=== PATIENT | female | born 2000 | race Caucasian/White ===

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

== ENCOUNTER 2019-01-01 19:56 | Emergency (ER) | payer BC ==
[~2019-01-01] VITALS: Ht 167.6 cm; Wt 47.7 kg
[2019-01-01] MEDS ORDERED: LILETTA52 MG (20:13)
[2019-01-01] MEDS ORDERED: ENTYVIO IV (20:13)
[2019-01-01] MEDS ORDERED: CANASA 1000MG1000 MG (20:13)
[2019-01-01] MEDS ORDERED: PRIL40 PO (20:13)
[2019-01-01 21:10] LABS: COLLECTION METHOD CLEAN CATCH
[2019-01-01 21:14] LABS: BASO # 0.1 (0.0-0.2); BASO % 0.7 % (0.0-2.0); EOS # 0.1 (0.0-0.7); GRAN # 7.4 (1.4-6.5); GRAN % 73.2 % (42.2-75.2); HEMOGLOBIN 10.2 g/dl (12.0-15.0); LYMPH # 1.3 (1.2-3.4); LYMPH % 13.1 % (20.0-51.0); MEAN CELL VOLUME 71 fl (80.0-95.0); MEAN CORPUSCULAR HEMOGLOBIN 22 pg (26.0-32.0); MEAN CORPUSCULAR HGB CONC 31 g/dl (33.0-37.0); MEAN PLATELET VOLUME 9.1 fl (7.4-10.4); MONO # 1.1 (0.1-0.6); MONO % 11.4 % (1.7-9.3); PLATELET COUNT 492 K/mm3 (130-400); RED BLOOD COUNT 4.67 M/mm3 (4.10-5.30); REDCELL DISTRIBUTION WIDTH-CV 15.6 % (11.5-14.5)
[2019-01-01 21:23] LABS: MUCOUS Present /lpf; PH 6 (5-8); SQUAMOUS EPITHELIAL 0-2 /hpf; URINE APPEARANCE Clear; URINE BACTERIA None Seen /hpf; URINE BILIRUBIN Negative (NEGATIVE); URINE BLOOD Negative (NEGATIVE); URINE COLOR Yellow; URINE GLUCOSE Negative (NEGATIVE); URINE KETONE Trace (NEGATIVE); URINE LEUKOCYTE ESTERASE Negative (NEGATIVE); URINE NITRATE Negative (NEGATIVE); URINE PROTEIN(semi-quant) Negative (NEGATIVE); URINE RBC 0-2 /hpf
[2019-01-01 21:28] LABS: ALBUMIN 3.3 gm/dL (3.5-5.0); BILIRUBIN,TOTAL 0.6 mg/dL (0.0-1.0); C-REACTIVE PROTEIN 7.3 mg/dL (0.0-0.9); CALCIUM 8.3 mg/dL (8.4-10.2); CREATININE, serum 0.77 (0.52-1.25); POTASSIUM 3.6 mmol/L (3.4-5.0); TOTAL PROTEIN 6.3 gm/dL (6.4-8.2)
[2019-01-01] MEDS ORDERED: LEXAPRO 5MG5 MG PO (21:39)
[2019-01-01 21:49] LABS: HEMATOCRIT 33.1 % (35.0-45.0)
[2019-01-02 07:20] VITALS: BP 103/59; PULSE 78; TEMP 98.1
== END 2019-01-02 07:20 | disposition short-term general hospital (02) ==
LOC: COL.ER 19:56
PROVIDERS: Emergency Medicine
DX: K50.90 Crohn's disease, unspecified, without complications (principal)
CPT/HCPCS: J2270; J2405; J3010; J7030; Q9967